=== PATIENT | female | born 1930 | race Caucasian/White ===

== ENCOUNTER → 2016-06-20 | Outpatient (CLI) | payer MEDICARE ==
[~2016-06-20] MED LIST: ACETAMINOPHEN PO; ACTOS PO; ALBUTEROL20 ml INH; AMARYL PO; AMARYL2 MG PO; AMLODIPINE BESYL5 MG PO; ASPIRIN EC81 M1 PO; ASPIRIN PO; ASPIRIN81 M2 PO; ATENOLOL PO; B-121000 MC3 PO; B-12500 MCG PO; CALCITONIN; CALCIUM 600 +1 EAC1 PO; CIPRO PO; COUMADIN2.5 MG PO; COUMADIN5 MG PO; COZAAR100 MG PO; CRESTOR PO; DARVOCET-N 1001 TAB PO; DIOVAN PO; EFFIENT10 MG PO; EXFORGE; EXFORGE PO; FLAGYL PO; FLAGYL250 M1; GLIMEPIRIDE2 MG PO; HUMALOG MI100 UNIT/5 SUBQ; HYDROCHLOROTHIA25 MG PO; IMDUR-ER30 M1 PO; INSULIN 70/30 SQ; ISOSORBIDE DINI30 MG PO; KEFLEX PO; LANTUS100 U/ML SUBQ; LASIX PO; LASIX20 MG PO; LEVAQUIN PO; LEVAQUIN250 MG; LIPITOR PO; LOPRESSOR PO; LOSARTAN POTAS100 MG PO; METFORMIN HCL500 M1 PO; METFORMIN PO; METOPROLOL TAR25 MG PO; MIACALCIN4 ML; NEURONTIN100 MG PO; NORCO 5/325 TAB1 TAB PO; NORVASC PO; NOVOLOG7030; OMEPRAZOLE20 M1 PO; OMEPRAZOLE20 M2 PO; PLAVIX PO; PRILOSEC PO; PRILOSEC20 M1 PO; PROTONIX PO; SIMVASTATIN10 MG PO; SIMVASTATIN20 MG PO; TOPROL XL 50 MG50 MG PO; TOPROL XL PO; TRICOR; TRICOR PO; VIBRAMYCIN100 M1 PO; VITAMIN D250000 UNIT PO; VITAMIN D350000 UNIT PO; VITAMIN D50000 UNIT PO; ZETIA PO; ZOCOR20 MG PO
--- NOTE | ~2016-06-20 | BD1 ---
[facility] A Service of [facility] RADIOLOGY TEXT RESULTS PATIENT: FLORI PAEZ LOCATION: [facility] : 30 UNIT #: [id number] AGE: [address]: Manpreet Amaro MD SEX: F ORDER DR: [id number] [facility] [address] [place], [place] [address] [id number] O MR#: [id number] Acc #: [id number] NAME: FLORI PAEZ : 1930 SEX: F STUDY DATE/TIME: 06/20/2016 9:04 UNIT: [facility] ROOM: STUDY DESCRIPTION: BD Dexa Bone Dens 1+ Site Attending Physician: Manpreet Amaro M.D. Referring Physician: Manpreet Amaro M.D. Ordering Physician: Manpreet Amaro M.D. Primary Care Physician: Alex Connor M.D. MEDICAL IMAGING REPORT This report is preliminary unless electronic signature is present EXAM DXA scan 06/20/2016 HISTORY Status post menopause with no hormone replacement therapy. Osteopenia. Arthritis and diabetes. Fracture of ankle and wrist in last 10 years. Hypertension with blood pressure medication. FINDINGS Bone mineral density in the lumbar spine from L1-L4 is 0.704 g/cm2 which is 3.1 standard deviations below the mean when compared to the young adult reference population which is characteristic of osteoporosis. Bone mineral density in the left femoral neck was 0.464 g/cm2 which is 3.5 standard deviations below the mean when compared to the young adult reference population which is characteristic of osteoporosis. IMPRESSION Bone mineral density in the lumbar spine and left hip characteristic of osteoporosis. Dictated by... Eleno Adams M.D. THIS IS AN ELECTRONICALLY VERIFIED REPORT Eleno Adams M.D. at 06/20/2016 5:48 PM KOLE/re TD: 06/20/2016 14:02 JOB #: [id number] MEDICAL IMAGING REPORT [facility] A Service of [facility] RADIOLOGY TEXT RESULTS PATIENT: FLORI PAEZ [facility]ATION: [facility] : 30 UNIT #: [id number] AGE: [address]: Manpreet Amaro MD SEX: F ORDER DR: COPY
--- NOTE | ~2016-06-20 | MR113 ---
[facility] A Service of [facility] RADIOLOGY TEXT RESULTS PATIENT: FLORI PAEZ LOCATION: [facility] : 30 UNIT #: [id number] AGE: [address]: Manpreet Amaro MD SEX: F ORDER DR: [id number] [facility] [address] [place], [place] [address] [id number] O MR#: [id number] Acc #: [id number] NAME: FLORI PAEZ : 1930 SEX: F STUDY DATE/TIME: 06/20/2016 7:29 UNIT: [facility] ROOM: STUDY DESCRIPTION: MR Lumbar Wo Contrast Attending Physician: Manpreet Amaro M.D. Referring Physician: Manpreet Amaro M.D. Ordering Physician: Manpreet Amaro M.D. Primary Care Physician: Alex Connor M.D. MRI CENTER REPORT This report is preliminary unless electronic signature is present. EXAM MRI of the lumbar spine without contrast HISTORY Low-back pain. Diffuse large B-cell lymphoma. Chronic low back pain for 2 years, bilateral hip pain left greater than right increasing in the past year. Known lymphoma and abnormal PET/CT 06/13/2016. No recent trauma. Lymphoma diagnosed May 2015 with chemotherapy 07/2015, radiation therapy 09/2015. FINDINGS Sagittal alignment is normal. The intervertebral discs are desiccated in general with broad Schmorl's node formation/endplate fracture inferior L2 and to a lesser extent either side of 3-4, 4-5 and 5-1 intervertebral discs. There is mild chronic anterior wedging at L2 associated with this. There are mild marrow endplate degenerative changes. Partly seen is abnormality in the right iliac bone and adjacent right sacral ala which shows abnormal activity on the PET scan and remains worrisome for involvement with known lymphoma. See the sacrum dictation. The conus medullaris terminates at L2-3 and is normal. Mild lower lumbar levoconvex scoliosis. At L1-2, no significant abnormality. At L2-3, there is a mild broad-based posterior disc bulge but no canal stenosis or foraminal impingement. Mild facet hypertrophy. At L3-4, mild facet degenerative change bilaterally. Minor broad-based posterior disc bulging more prominent into inferior foramina. No canal stenosis and no foraminal impingement. At L4-5, cfsj-ab-nllqcsev facet degenerative change bilaterally. Mild ligamentum flavum thickening, concentric disc bulge with superimposed STS. [facility] A Service of [facility] RADIOLOGY TEXT RESULTS PATIENT: FLORI PAEZ LOCATION: [facility] : 30 UNIT #: [id number] AGE: [address]: Manpreet Amaro MD SEX: F ORDER DR: extrusion posteriorly broad but more focal in a right paramedian location. The extrusion measures about 1.0 cm SI dimension and 0.6 cm AP dimension. The combination of findings result in approximately moderate central canal stenosis with mass effect on right greater than left lateral recess. Disc material also extends into the foramina with [id number] foraminal narrowing worse on the right. At L5-S1, mild facet degenerative change right greater than left. Mild posterior disc protrusion. Small annular fissure but no canal stenosis or foraminal compromise. There are likely parapelvic renal cysts bilaterally. IMPRESSION 1. Partial demonstration of lesion in the right iliac bone and adjacent right sacral ala most concerning for involvement with patient's known lymphoma. See the separate sacrum dictation. 2. Otherwise there is no evidence for involvement of the lumbar spine with the patient's known lymphoma. There is lumbar degenerative disease most significant appearing radiographically at the L4-5 level where combination of findings result in moderate canal stenosis with mass effect on right greater than left lateral recess. 3. Mild chronic anterior wedging at L2 related to an inferior broad endplate fracture. No acute fracture is appreciated. Dictated by... Anabel Pierson M.D. THIS IS AN ELECTRONICALLY VERIFIED REPORT Anabel Pierson M.D. at 06/20/2016 4:01 PM Blayne TD: 06/20/2016 14:39 JOB #: [id number] MRI CENTER REPORT COPY
--- NOTE | ~2016-06-20 | MR159 ---
[facility] A Service of [facility] RADIOLOGY TEXT RESULTS PATIENT: FLORI PAEZ LOCATION: [facility] : 30 UNIT #: [id number] AGE: [address]: Manpreet Amaro MD SEX: F ORDER DR: [id number] [facility] [address] [place], [place] [address] [id number] O MR#: [id number] Acc #: [id number] NAME: FLORI PAEZ : 1930 SEX: F STUDY DATE/TIME: 06/20/2016 7:29 UNIT: [facility] ROOM: STUDY DESCRIPTION: MR Sacrum Wo Contrast Attending Physician: Manpreet Amaro M.D. Referring Physician: Manpreet Amaro M.D. Ordering Physician: Manpreet Amaro M.D. Primary Care Physician: Alex Connor M.D. MRI CENTER REPORT This report is preliminary unless electronic signature is present. EXAM MRI of sacrum without contrast. DATE OF EXAM 06/20/2016 HISTORY Lymphoma, back pain. Back pain has been present for 2 years. The patient also complains of left greater than right bilateral hip pain, worsening for the past year. PROCEDURE Routine MRI of the sacrum with and without injury and right sacrum without contrast. FINDINGS There is abnormal marrow signal in the right posterior ilium and in the left S1 pedicle. This corresponds to an area of mixed lytic and sclerotic bony change with some modest PET positivity seen on 06/13/2016, but the bony change is not convincingly different than at the time of a PET/CT of September 2015, or December 2015. It was not present and 2009, but had an even more lytic appearance and May 2015. No other areas of abnormal marrow signal are seen. There is some edema in the adjacent gluteus musculature and underneath the iliacus muscle, thought that similar finding is seen on the left with regard to the iliacus. IMPRESSION Abnormal marrow signal in the right posterior ileum and involving the right S1 sacral ala/pedicle. However, it is probable that these changes reflect chronic changes in the right posterior ilium not present in 2009, but which have been present dating as far back as May 2015, when they STS. [facility] A Service of [facility] RADIOLOGY TEXT RESULTS PATIENT: FLORI PAEZ LOCATION: [facility] : 30 UNIT #: [id number] AGE: [address]: Manpreet Amaro MD SEX: F ORDER DR: had a much more lytic appearance. This has almost certainly have been an area of previous tumor involvement but whether the findings now indicate active tumor involvement or only chronic sequela is less certain. No other areas of abnormal signal are seen. There is no evidence to suggest left sacral or transverse sacral edema or acute abnormality. Dictated by... Bryan Cody M.D. THIS IS AN ELECTRONICALLY VERIFIED REPORT Bryan Cody M.D. at 06/21/2016 12:45 PM FAITH/mario TD: 06/20/2016 17:56 JOB #: [id number] MRI CENTER REPORT COPY
[2016-06-20 09:26] LABS: POC - CREATININE 1.51 mg/dL (0.44-1.03)
== END | disposition home or self-care (01) ==
LOC: CMRI 06:34
PROVIDERS: Internal Medicine Hematology & Oncology
DX: Z13.820 Encounter for screening for osteoporosis (principal); C83.39 Diffuse large B-cell lymphoma, extranodal and solid organ sites; R93.7 Abnormal findings on diagnostic imaging of other parts of musculoskeletal system; K59.00 Constipation, unspecified; E86.0 Dehydration; Z78.0 Asymptomatic menopausal state; M47.816 Spondylosis without myelopathy or radiculopathy, lumbar region
CPT/HCPCS: 72148; 72195; 77080; 82565

== ENCOUNTER → 2016-07-02 | Day surgery (SDC) | payer MEDICARE ==
--- NOTE | ~2016-07-02 | OR ---
Unit #: [id number] #: [id number] Patient: FLORI PAEZ [id number] [address] [address] [id number] O MR#: [id number] NAME: FLORI PAEZ ROOM: Date of Procedure: 07/02/2016 Admission Date: 07/02/2016 Surgeon: Marko Schmitz M.D. : 1930 Attending Physician: Marko Schmitz M.D. Referring Physician: Marko Schmitz M.D. Primary Care Physician: Alex Connor M.D. SURGERY CENTER OPERATIVE NOTE PROCEDURE PERFORMED Lumbar epidural steroid injection under x-ray guided needle placement with provider administered conscious sedation. PREOPERATIVE DIAGNOSES 1. Acute lumbar radiculitis. 2. Chronic lumbar radicular pain. 3. Spinal stenosis, lumbosacral spine. 4. Herniated disk, L4-L5. 5. Degenerative joint disease, lumbosacral spine. 6. Degenerative disk disease, lumbosacral spine. INDICATIONS FOR PROCEDURE The patient presents today with years long history of chronic intermittent and recurrent lower back pain. Over the course of the past few months, she describes the pain is becoming crescendo in nature and failing to respond to both medication and physical therapy and has now begun to negatively impact her activities of daily living. She is in possession of MRI report, which shows diffuse spinal stenosis in the lumbosacral area as well as 2 areas of disk herniation. The most notably worse area is at the L4-L5 level. After discussing risks and benefits of proceeding today with a L4-L5 epidural steroid injection as well as return on 07/21/2016 for reevaluation, the patient agreed this would be appropriate course of action. DESCRIPTION OF PROCEDURE She was then taken to the operating room, where she was prepped and draped in a sterile manner. Standard monitors were applied. She was sedated with 1 mg of IV Versed and lumbar epidural space accessed at the L4-L5 level using loss of resistance technique and x-ray guidance. Needle placement was confirmed with injection of 2 mL of Omnipaque. There was good superior and inferior flow at this injectate level. Following successful needle placement confirmation at the L4-L5 level which required an x-ray time of 5 seconds, the patient received an injection containing 2 mL normal saline and 2 mL of 0.25% bupivacaine, and 80 mg of methylprednisolone. She tolerated this procedure well. She was discharged home with followup instructions, which include return dates as described above. Dictated by... Marko Schmitz M.D. Unit #: [id number] #: [id number] Patient: FLORI PAEZ RONALDO/modl TD: 07/02/2016 22:56 JOB #: [id number] CC: Manpreet Amaro M.D. SURGERY CENTER OPERATIVE NOTE Page 1 of 1 X Kendall Schmitz MD X PROCEDURE OPERATIVE NOTE
== END | disposition home or self-care (01) ==
LOC: CCSC 07:50
DX: G89.29 Other chronic pain (principal); M51.17 Intervertebral disc disorders with radiculopathy, lumbosacral region; M48.07 Spinal stenosis, lumbosacral region; I25.10 Atherosclerotic heart disease of native coronary artery without angina pectoris; K21.9 Gastro-esophageal reflux disease without esophagitis; Z88.2 Allergy status to sulfonamides; Z88.5 Allergy status to narcotic agent; Z90.49 Acquired absence of other specified parts of digestive tract; Z95.1 Presence of aortocoronary bypass graft; Z98.41 Cataract extraction status, right eye; Z98.42 Cataract extraction status, left eye; Z98.890 Other specified postprocedural states
CPT/HCPCS: J1040; J2250

== ENCOUNTER → 2016-07-21 | Day surgery (SDC) | payer MEDICARE ==
--- NOTE | ~2016-07-21 | OR ---
Unit #: [id number] #: [id number] Patient: FLORI PAEZ [id number] [address] [address] [id number] O MR#: [id number] NAME: FLORI PAEZ ROOM: Date of Procedure: 07/21/2016 Admission Date: 07/21/2016 Surgeon: Marko Schmitz M.D. : 1930 Attending Physician: Marko Schmitz M.D. Referring Physician: Marko Schmitz M.D. Primary Care Physician: Alex Connor M.D. SURGERY CENTER OPERATIVE NOTE PROCEDURE PERFORMED Lumbar epidural steroid injection under x-ray guided needle placement with provider administered conscious sedation. PREOPERATIVE DIAGNOSES 1. Acute lumbar radiculitis. 2. Spinal stenosis, lumbosacral spine. 3. Herniated disk, L4-L5 with extension into the L5-S1 interspace. 4. Degenerative joint disease, lumbosacral spine. 5. Degenerative disk disease, lumbosacral spine. INDICATIONS FOR PROCEDURE The patient presents status post one previous lumbar approach epidural steroid injection for an acute radiculitis, which had failed to respond to conservative therapy. The patient states she got some results; however, results were incomplete and she is desiring a second epidural steroid injection. After discussing risks and benefits of proceeding today with second lumbar approach epidural steroid injection at this time utilizing a dual needle technique, the patient agreed this would be the appropriate course of action. We opted to go to the L5-S1 due to the extension of the aforementioned herniated disk. DESCRIPTION OF PROCEDURE Following these discussions, the patient was taken to the operating room, where she was prepped and draped in a sterile manner. Standard monitors were applied. She was sedated with 2 mg of IV Versed and lumbar epidural space was accessed at the L5-S1 and L4-L5 levels using loss of resistance technique and x-ray guidance. Needle placement was confirmed with injection of 2 mL of Omnipaque at each site. Dye flow at the L5-S1 level was approximately 50:50 superior and inferior and at the L4-L5 levels, approximately 80% superior. Following this dual needle which required an x-ray time of 10 seconds, the patient received an injectate containing 4 mL normal saline and 40 mg of methylprednisolone at each level for a total injectate volume of 8 mL normal saline and 80 mg of methylprednisolone. She tolerated this procedure well. She was discharged home with followup instructions, which include an offer to return to this clinic as early as 10/27/2016 if we could be of further service to her. Dictated by... Marko Schmitz M.D. RONALDO/yamil Unit #: [id number] #: [id number] Patient: FLORI PAEZ TD: 07/22/2016 01:16 JOB #: [id number] CC: Manpreet Amaro M.D. SURGERY CENTER OPERATIVE NOTE Page 1 of 1 X Kendall Schmitz MD X PROCEDURE OPERATIVE NOTE
== END | disposition home or self-care (01) ==
LOC: CCSC 09:12
DX: M51.16 Intervertebral disc disorders with radiculopathy, lumbar region (principal); M47.27 Other spondylosis with radiculopathy, lumbosacral region; M51.17 Intervertebral disc disorders with radiculopathy, lumbosacral region; M48.07 Spinal stenosis, lumbosacral region; I25.10 Atherosclerotic heart disease of native coronary artery without angina pectoris; K21.9 Gastro-esophageal reflux disease without esophagitis; Z95.1 Presence of aortocoronary bypass graft; Z88.2 Allergy status to sulfonamides; Z88.5 Allergy status to narcotic agent
CPT/HCPCS: 82947; J1040; J2250

== ENCOUNTER → 2016-11-03 | Day surgery (SDC) | payer MEDICARE ==
--- NOTE | ~2016-11-03 | OR ---
Unit #: [id number] #: [id number] Patient: FLORI PAEZ [id number] [address] [address] [id number] O MR#: [id number] NAME: FLORI PAEZ ROOM: Date of Procedure: 11/03/2016 Admission Date: 11/03/2016 Surgeon: Marko Schmitz M.D. : 1930 Attending Physician: Kendall Schmitz Primary Care Physician: Alex Connor M.D. SURGERY CENTER OPERATIVE NOTE PROCEDURE PERFORMED Lumbar epidural steroid injection under x-ray guided needle placement with provider administered conscious sedation. PREOPERATIVE DIAGNOSES 1. Acute lumbar radiculitis. 2. Spinal stenosis, lumbosacral spine. 3. Herniated disk, L4-L5. 4. Degenerative disk disease, lumbosacral spine. 5. Degenerative joint disease, lumbosacral spine. INDICATIONS FOR PROCEDURE The patient presents today with longstanding history of chronic lumbar radicular pain secondary to her underlying degenerative processes. She is generally fairly well managed medically, but does occasionally experience exacerbations, which most recently became so severe as to require epidural steroid injections. She got approximately 60% to 80% relief for 6 to 8 weeks after series of two epidural steroid injections culminating in 07/2016. Over the course of the past 4 to 6 weeks, she has developed again a crescendo pattern increase in her pain, which has reached a point where it is interfering with her activities of daily living. She presents today requesting additional epidural steroid injection. After discussing risks and benefits of proceeding today with a lumbar approach epidural steroid injection including the increased risks of bleeding associated with her ongoing antiplatelet therapy, the patient agreed this would be the appropriate course of action. She was willing to assume the risk. DESCRIPTION OF PROCEDURE She was then taken to the operating room, where she was prepped and draped in a sterile manner. Standard monitors were applied. She was sedated with 1 mg of IV Versed and lumbar epidural space accessed at the L5-S1 level using loss of resistance technique and x-ray guidance. Needle placement was confirmed with injection of 2 mL of Omnipaque. Approximately 80% of dye flow was in the inferior direction. Following successful needle placement confirmation, the patient received an injectate containing 4 mL normal saline and 80 mg of methylprednisolone. She tolerated this procedure well. She was discharged home with followup instructions, which include offer to return this clinic as early as 02/11/2017 if we could be of further service to her. At that point, we will most likely perform an L4-L5 epidural steroid injection with the possibility of an L2-L3 dual needle access technique. Unit #: [id number] #: [id number] Patient: FLORI PAEZ Dictated by... Song Tapia/yamil TD: 11/03/2016 13:13 JOB #: [id number] CC: Manpreet Amaro M.D. SURGERY CENTER OPERATIVE NOTE Page 1 of 1 X Kendall Schmitz MD X PROCEDURE OPERATIVE NOTE
== END | disposition home or self-care (01) ==
LOC: CCSC 11:25
DX: G89.29 Other chronic pain (principal); M51.16 Intervertebral disc disorders with radiculopathy, lumbar region; M51.17 Intervertebral disc disorders with radiculopathy, lumbosacral region; M48.07 Spinal stenosis, lumbosacral region; M47.27 Other spondylosis with radiculopathy, lumbosacral region; I25.10 Atherosclerotic heart disease of native coronary artery without angina pectoris; K21.9 Gastro-esophageal reflux disease without esophagitis; Z88.2 Allergy status to sulfonamides; Z79.82 Long term (current) use of aspirin; Z79.4 Long term (current) use of insulin; Z79.01 Long term (current) use of anticoagulants; Z79.899 Other long term (current) drug therapy; Z95.1 Presence of aortocoronary bypass graft; Z95.5 Presence of coronary angioplasty implant and graft; Z98.41 Cataract extraction status, right eye; Z98.42 Cataract extraction status, left eye; Z98.890 Other specified postprocedural states
CPT/HCPCS: J1040; J2250